=== PATIENT | male | born 1975 | race Caucasian/White ===

== ENCOUNTER 2019-09-16 20:50 | Emergency (ER) | payer MEDICAID ==
[~2019-09-16] VITALS: Ht 170.2 cm; Wt 71.1 kg
[2019-09-16 20:53] VITALS: BP 163/61
[2019-09-16] MEDS ORDERED: LIDOCAINE-MPF 1%, 5ML ONE (22:02)
== END 2019-09-16 23:21 | disposition home or self-care (01) ==
LOC: ED 22:00
DX: L03.012 Cellulitis of left finger (principal)
CPT/HCPCS: 10060; 99283